=== PATIENT | male | born 1975 | race Caucasian/White ===

== ENCOUNTER 2023-10-01 00:46 | Emergency (ER) | payer BC, SELFPAY ==
[2023-10-01 00:50] VITALS: BP 133/87; PULSE 71; RESP 16; TEMP 37.1; O2SAT 95; BMI 35.0
--- NOTE | 2023-10-01 01:26 | ED_ITS ---
HPI - Skin/Abscess/Foreign Bdy General Chief complaint: Skin/Abscess/Foreign Body Stated complaint: abscess Time Seen by Provider: 10/01/23 00:58 Source: patient Mode of arrival: walk-in Limitations: no limitations History of Present Illness HPI narrative: Patient has an abscess along the medial left buttock and has been taking clindamycin for it. He has an appointment with general surgeon in 2 days. He said that tonight the abscess started draining and bleeding. He came to the ED for evaluation. No systemic complaints such as fever or chills or vomiting. Related Data Home Medications Medication Instructions Recorded Confirmed bisoprolol 10 1 tab PO DAILY 10/01/23 10/01/23 mg-hydrochlorothiazide 6.25 mg tablet clindamycin HCl 150 mg capsule 150 mg PO Q8H 10/01/23 10/01/23 Allergies Allergy/AdvReac Type Severity Reaction Status Date / Time tizanidine [From Zanaflex] AdvReac Mild Muscle Pain Verified 10/01/23 00:50 PFSH PFSH Social History Smoking status: Never smoker Exam Narrative Exam Narrative: Nurses notes and vital signs reviewed and patient is not hypoxic. afebrile General: Well-appearing and in no apparent distress. Skin: Warm, dry, no pallor noted. No rash. Cardiovascular: Normal peripheral perfusion Respiratory: No accessory muscle use or respiratory distress. Buttocks: exam with ED nurse Ivelisse Mccormick present. Abscess medial left buttock already draining purulent discharge. I obtained wound culture and then pressed to express large amount of mucopurulent drainage and several bloody clots. I continued until the abscess was fully drained. Neurological: A&O x4. No cranial nerve dysfunction observed. No truncal ataxia. Moves all extremities. Sensation intact. Psychiatric: Cooperative and interactive. Normal mood and affect. Constitutional Vital Signs, click to edit/add: Last Vital Signs Temp 98.7 F 10/01/23 00:50 Pulse 71 10/01/23 00:50 Resp 16 10/01/23 00:50 BP 133/87 10/01/23 00:50 Pulse Ox 95 10/01/23 00:50 O2 Del Method Room Air 10/01/23 00:50 Course Vital Signs Vital signs: Vital Signs Temperature 98.7 F 10/01/23 00:50 Pulse Rate 71 10/01/23 00:50 Respiratory Rate 16 10/01/23 00:50 Blood Pressure 133/87 10/01/23 00:50 Pulse Oximetry 95 10/01/23 00:50 Oxygen Delivery Method Room Air 10/01/23 00:50 Temperature 98.7 F 10/01/23 00:50 Pulse Rate 71 10/01/23 00:50 Respiratory Rate 16 10/01/23 00:50 Blood Pressure 133/87 10/01/23 00:50 Pulse Oximetry 95 10/01/23 00:50 Oxygen Delivery Method Room Air 10/01/23 00:50 MDM - Skin/Abscess/Foreign Bdy MDM Narrative Medical decision making narrative: By applying pressure I fully drained the abscess and sent a culture to the lab. See my description in the EXAM section. I applied layers of gauze to the area and the patient put on an adult diaper and used extra gauze to help tamponade the bleeding, which had stopped after I was done. He will continue the Cl indamycin and keep his follow up appointment on 10/02/23. ED return if he worsens. Discharge Plan Discharge Chief Complaint: Skin/Abscess/Foreign Body Clinical Impression: Abscess of skin or subcutaneous tissue Patient Disposition: Home, Self-Care Time of Disposition Decision: 01:32 Prescriptions / Home Meds: No Action bisoprolol-hydrochlorothiazide 10-6.25 mg tablet 1 tab PO DAILY clindamycin HCl 150 mg capsule 150 mg PO Q8H Instructions: Abscess (ED) Stand Alone Forms: Portal Instructions Referrals: Physician,Non-Staff, [Primary Care Provider] - 1 week Shlomo Centeno MD [Physician] - 10/02/23
== END 2023-10-01 01:37 | disposition home or self-care (01) ==
PROVIDERS: Emergency Provider Emergency Medicine
DX: L02.31 Cutaneous abscess of buttock (principal)
CPT/HCPCS: 87070; 87076; 87150; 87186; 99283